=== PATIENT | female | born 1995 | race Caucasian/White ===

== ENCOUNTER 2016-10-17 12:30 | Emergency (ER) | payer BC ==
--- NOTE | ~2016-10-17 | ER ---
PATIENT'S NAME: RADHA [facility] AGE: 21 Y [address] ROOM: [place] [address] LOCATION: [facility] ADMIT DATE: 10/17/2016 ER/Outpatient Report DISCHARGE DATE: 10/17/2016 FAMILY PHYSICIAN: Asmita Dickson MD ATTENDING PHYSICIAN: Elpidio Lobo TIME OF PATIENT ARRIVAL: 12:30. TIME OF PATIENT EVALUATION: 12:40. CHIEF COMPLAINT: Pelvic pain post IUD placement. HISTORY OF PRESENT ILLNESS: This is a 21-year-old female, who presents to the ER, who states she had an IUD placed on Tuesday. She states she had a lot a cramping abdominal pain with this post procedure and then now is having some more pain on the right side of her abdomen. She states that she has had nausea and 1 emesis with this pain. She has had no difficulty with urination. No vaginal bleeding. No vaginal discharge or odor. No other recent illnesses, and no fever or chills. She denies any other problems at this time. The patient states she had a full pelvic exam done on Tuesday. ALLERGIES: NO KNOWN ALLERGIES. MEDICATIONS: Please see medication list, nurse's notes. PAST MEDICAL HISTORY: She is sexually active. PAST SURGICAL HISTORY: None. SOCIAL HISTORY: Denies smoking, drug, or alcohol use. REVIEW OF SYSTEMS: All systems were reviewed and were negative with the exception of those discussed in the HPI. PHYSICAL EXAMINATION: PATIENT'S NAME: RADHA [facility] AGE: 21 Y [address] ROOM: [place] [address] LOCATION: [facility] ADMIT DATE: 10/17/2016 ER/Outpatient Report DISCHARGE DATE: 10/17/2016 FAMILY PHYSICIAN: Asmita Dickson MD ATTENDING PHYSICIAN: Elpidio Lobo VITAL SIGNS: Height 5 feet 6 inches stated, weight 58.7 kg taken, blood pressure is 157/89, pulse 55, respirations 18, temperature 97 degrees tympanically, and saturation is 100% on room air. Kiet Coma Score is 15. GENERAL: Alert, calm, well-developed female in mild distress. HEENT: Head is normocephalic. She does display moist mucous membranes. LUNGS: Clear to auscultation bilaterally. HEART: Regular rate and rhythm. ABDOMEN: Soft. She has some generalized tenderness across her lower abdomen with palpation. No guarding. No rebound tenderness. Good bowel sounds throughout. GENITOURINARY: Exam is done. No lesions are noted to the vaginal wall. She does have strings present through the cervix. No active bleeding or drainage noted. LABORATORY AND X-RAY DATA: None were done. The patient was unable to provide a urine sample. IMPRESSION: Pelvic pain post IUD placement. ASSESSMENT AND PLAN: We did give the patient a shot of Toradol and Phenergan here in the emergency room, which did improve her pain. We will dismiss her to home with a prescription for Zofran and [place] to use as directed. She needs to continue to monitor symptoms. Continue to push fluids. She may alternate her pain medication as needed with ibuprofen. She needs to call her primary care physician tomorrow for followup care. The patient and the patient's grandmother understand and agree with care. FABIO STUART PA-C FOR DO [address]/jusl /[id number] d: 10/17/16 1527 t: 10/27/16 0659, OUTPATIENT REPORT
== END 2016-10-17 14:23 | disposition disaster alternative care site (69) ==
LOC: GMED 12:30
DX: T83.84XA Pain due to genitourinary prosthetic devices, implants and grafts, initial encounter (principal)
CPT/HCPCS: J1885; J2550